=== PATIENT | male | born 1980 | race Caucasian/White ===

== ENCOUNTER 2019-10-19 14:16 | Emergency (ER) | payer OTHER | END 2019-10-19 15:13 | disposition home or self-care (01) | LOC: NAV ERS 14:16 | DX: S39.012A Strain of muscle, fascia and tendon of lower back, initial encounter (principal); J45.909 Unspecified asthma, uncomplicated; F17.290 Nicotine dependence, other tobacco product, uncomplicated; X50.0XXA Overexertion from strenuous movement or load, initial encounter; Y99.0 Civilian activity done for income or pay | CPT/HCPCS: 99283 ==

== ENCOUNTER 2020-12-13 09:35 | Emergency (ER) | payer OTHER ==
[2020-12-13] MEDS ORDERED: Ketorolac Tromethamine 60 MG/2 ML VIAL ONE ×2 (10:10→10:11)
[2020-12-13] MEDS ORDERED: Cyclobenzaprine 10 MG TAB ONE (11:30)
== END 2020-12-13 11:34 | disposition home or self-care (01) ==
LOC: NAV ERS 09:35
DX: M54.5 Low back pain (principal); F17.290 Nicotine dependence, other tobacco product, uncomplicated; X50.9XXA Other and unspecified overexertion or strenuous movements or postures, initial encounter
CPT/HCPCS: 72100; 96372; J1885